=== PATIENT | female | born 1940 | race Caucasian/White ===

== ENCOUNTER → 2018-03-29 | Outpatient (CLI) | payer MEDICARE ==
[~2018-03-29] MED LIST: ASPIR-LOW81 MG PO; AZELASTINE137 MCG/0.; BENADRYL25 M1 PO; IOPAMIDOL 370 MG/ML 200 ML INFUS..BTL INJ ONE; METOPROLOL TART25 MG PO; RISPERIDONE0.5 MG PO; SODIUM CHLORIDE 0.9% 50ML 50 ML ONE; TAGAMET HB200 MG PO; TUMS200 MG PO
[2018-03-29 15:53] LABS: CREATININE, SERUM 0.91 mg/dL (0.57-1.11)
--- NOTE | 2018-03-29 16:37 | Diagnostic Imaging Report ---
PROCEDURE: CT scan of the chest WITH intravenous contrast, using standard protocol. TECHNIQUE: The chest was scanned utilizing a multidetector helical scanner from the lung apex through the level of the adrenal glands after the IV administration of 63 cc of Isovue 370. Coronal and sagittal multiplanar reformations were obtained. COMPARISON: Patients [facility], CT, CT CHEST W, 06/12/2017, 16:25. INDICATIONS: pe, right side chest pain FINDINGS: Exam limited by breathing motion artifact. Lines/tubes: None. Lungs and Airways: No filling defects in the main, right or left pulmonary arteries to the segmental level to suggest pulmonary embolism. A few scattered lucent areas interspersed with normal parenchyma are noted throughout both lungs is in mild mosaic distribution (for example series 3, image 30 in the upper lobes, and series 3, image 48 in the lower lobes. No consolidation. Stable 3 mm pulmonary nodule in the right upper lobe (series 3, image 43). Airways are clear, without endobronchial lesions. Pleura: No effusion, or pneumothorax. Heart and mediastinum: Thyroid is unremarkable. Heart size is normal. Trace pericardial fluid. Aorta is non-aneurysmal. Main pulmonary artery is enlarged, measuring 3.6 cm. Lymph nodes: No mediastina, hilar, or axillary adenopathy. Abdomen: Limited contrast-enhanced views of the upper abdomen show no abnormality within the visualized liver, spleen, pancreas or left kidney. Partially visualized 10.7 x 9.1 cm fluid density simple cyst in the superior pole of the right kidney, which is stable. The adrenal glands are normal. Bones: No acute bony abnormalities. Degenerative changes in the thoracic spine. Generalized osteopenia. Apparent deformity of the sternum (sagittal image 49). IMPRESSION: 1. no CT evidence of pulmonary embolism. 2. Findings in the lungs may reflect mosaic distribution, which can be seen with small airways or small vessel disease, and less likely, interstitial disease. No consolidation or effusion. 3. Stable 3 mm pulmonary nodule in the right upper lobe. No need for followup if this is a low risk patient, per Fleischner Society 2017 guidelines given its small size. 4. Enlarged main pulmonary artery suggesting pulmonary hypertension. 5. Stable large partially visualized simple cyst in the superior pole of the right kidney. 6. Apparent deformity of the sternum, which may be due to the breathing motion artifact, however, a chronic fracture deformity may be considered if there is prior history of trauma. Memo Toney M.D. Dictated by: Memo Toney M.D. on 03/29/2018 at 16:40 Electronically approved by: Memo Toney M.D. on 03/29/2018 at 16:40
== END ==
LOC: CT 15:08
PROVIDERS: ATTEND Internal Medicine
DX: R07.9 Chest pain, unspecified (principal)
CPT/HCPCS: 36415; 71260; 82565; 84520; Q9967

== ENCOUNTER 2018-11-30 04:24 | Observation (INO) | payer MEDICARE ==
[~2018-11-30] VITALS: Ht 157.5 cm; Wt 70.3 kg
[~2018-11-30 04:24] MED LIST changes: -IOPAMIDOL 370 MG/ML 200 ML INFUS..BTL INJ ONE; -SODIUM CHLORIDE 0.9% 50ML 50 ML ONE
--- OUTSIDE RECORDS SUMMARY | 2018-11-30 04:27 | XMS REPORT ---
Author Author [facility] Address Unknown Phone Unavailable Care Team Providers Care Fingerprint Expert Name Role Phone Camille MENESES Unavailable Unavailable Problems This patient has no known problems. Allergies, Adverse Reactions, Alerts This patient has no known allergies or adverse reactions. Medications This patient has no known medications. Results Test Description Test Time Test Comments Text Results Atomic Results Result Comments CT CHEST W [place] [address] Patient Name: ZEYAD QUICK MR #: [id number] : 1940 Age/Sex: 77/F Req #: [id number] Adm Physician: Ordered by: JOSÉ MIGUEL MENESES MD Report #: [id number] Location: CT Room/Bed: Procedure: [id number] CT/CT CHEST W Exam Date: 03/29/18 Exam Time: 1615 REPORT STATUS: Signed PROCEDURE: CT scan of the chest WITH intravenous contrast, using standard protocol. TECHNIQUE: The chest was scanned utilizing a multidetector helical scanner from the lung apex through the level of the adrenal glands after the IV administration of 63 cc of Isovue 370. Coronal and sagittal multiplanar reformations were obtained. COMPARISON: [facility], CT, CT CHEST W, 06/12/2017, 16:25. INDICATIONS: pe, right side chest pain FINDINGS: Exam limited by breathing motion artifact. Lines/tubes: None. Lungs and Airways: No filling defects in the main, right or left pulmonary arteries to the segmental level to suggest pulmonary embolism. A few scattered lucent areas interspersed with normal parenchyma are noted throughout both lungs is in mild mosaic distribution (for example series 3, image 30 in the upper lobes, and series 3, image 48 in the lower lobes. No consolidation. Stable 3 mm pulmonary nodule in the right upper lobe (series 3, image 43). Airways are clear, without endobronchial lesions. Pleura: No effusion, or pneumothorax. Heart and mediastinum: Thyroid is unremarkable. Heart size is normal. Trace pericardial fluid. Aorta is non-aneurysmal. Main pulmonary artery is enlarged, measuring 3.6 cm. Lymph nodes: No mediastina, hilar, or axillary adenopathy. Abdomen: Limited contrast-enhanced views of the upper abdomen show no abnormality within the visualized liver, spleen, pancreas or left kidney. Partially visualized 10.7 x 9.1 cm fluid density simple cyst in the superior pole of the right kidney, which is stable. The adrenal glands are normal. Bones: No acute bony abnormalities. Degenerative changes in the thoracic spine. Generalized osteopenia. Apparent deformity of the sternum (sagittal image 49). IMPRESSION: 1. no CT evidence of pulmonary embolism. 2. Findings in the lungs may reflect mosaic distribution, which can be seen with small airways or small vessel disease, and less likely, interstitial disease. No consolidation or effusion. 3. Stable 3 mm pulmonary nodule in the right upper lobe. No need for followup if this is a low risk patient, per Fleischner Society 2017 guidelines given its small size. 4. Enlarged main pulmonary artery suggesting pulmonary hypertension. 5. Stable large partially visualized simple cyst in the superior pole of the right kidney. 6. Apparent deformity of the sternum, which may be due to the breathing motion artifact, however, a chronic fracture deformity may be considered if there is prior history of trauma. Jamel Norris M.D. Dictated by: Jamel Norris M.D. on 03/29/2018 at 16:40 Electronically approved by: Jamel Norris M.D. on 03/29/2018 at 16:40 Dictated By: JAMEL NORRIS MD [id number] Transcribed By: JADE on 03/29/18 1640 COPY TO: JOSÉ MIGUEL MENESES MD
[2018-11-30 05:30] LABS: BASOPHILS % 0.7 % (0.0-1.0); EOSINOPHILS # (AUTO) 0.1 (0.0-0.4); EOSINOPHILS % 1.4 % (0.0-6.0); HEMATOCRIT 42.4 % (34.2-44.1); HEMOGLOBIN 13.9 g/dL (12.0-16.0); LYMPHOCYTES % 35.5 % (18.0-39.1); MEAN CORPUSCULAR HEMOGLOBIN 30.5 pg (28-32); MEAN CORPUSCULAR HGB CONC 32.8 g/dL (31-35); MEAN CORPUSCULAR VOLUME 93.2 fL (81-99); MONOCYTES # (AUTO) 0.8 (0.2-0.8); MONOCYTES % 13.6 % (4.4-11.3); NEUTROPHILS # (AUTO) 2.7 (2.1-6.9); NEUTROPHILS % 48.6 % (38.7-80.0); PLATELET COUNT 282 x10e3/uL (140-360); RED BLOOD COUNT 4.55 x10e6/uL (3.6-5.1)
[2018-11-30 05:41] LABS: INR 1.15; PROTHROMBIN TIME 15.7 seconds (11.9-14.5)
[2018-11-30 05:42] LABS: PARTIAL THROMBOPLASTIN TIME 31.4 seconds (23.8-35.5)
[2018-11-30] MEDS ORDERED: RISPERIDONE0.5 MG PO (05:47)
[2018-11-30] MEDS ORDERED: XARELTO10 MG PO (05:47)
[2018-11-30] MEDS ORDERED: AZELASTINE HCL6 ML (05:50)
[2018-11-30] MEDS ORDERED: LOSARTAN POTASS25 MG PO (05:50)
[2018-11-30] MEDS ORDERED: ASPIRIN81 MG PO (05:50)
[2018-11-30 05:51] LABS: ALBUMIN 3.8 g/dL (3.5-5.0); ALBUMIN/GLOBULIN RATIO 1.6 (0.8-2.0); ANION GAP 11.6 mmol/L (8-16); CREATININE, SERUM 1.17 mg/dL (0.57-1.11); POTASSIUM 3.6 mmol/L (3.5-5.1)
[2018-11-30 05:52] LABS: CREATINE KINASE MB 0.6 ng/mL (0-5.0)
--- NOTE | 2018-11-30 05:56 | NUR ---
PT ATTEMPTED TO COLLECT URINE SAMPLE, DROPPED CUP IN TOILET WHILE TRYING TO COLLECT, PT STATES SHE WILL TRY AGAIN SOON POSSIBLE.
--- NOTE | 2018-11-30 06:13 | Diagnostic Imaging Report ---
EXAMINATION: CHEST 2 VIEWS INDICATION: chest pain COMPARISON: Chest x-ray 06/11/2017, chest CT 03/29/2018 FINDINGS: PA and lateral views TUBES and LINES: None. LUNGS: Lungs are well inflated. There is no evidence of pneumonia or pulmonary edema. PLEURA: No pleural effusion or pneumothorax. HEART AND MEDIASTINUM: The cardiomediastinal silhouette is unremarkable. BONES AND SOFT TISSUES: No acute osseous lesion. Soft tissues are unremarkable. UPPER ABDOMEN: No free air under the diaphragm. IMPRESSION: No acute thoracic abnormality. Signed by: DR. Nathaniel Palm MD on 11/30/2018 6:09 AM
[2018-11-30] MEDS ORDERED: ONDANSETRON HCL INJ 2MG/ML 2ML 2 MG/ML VIAL IV PRN (06:45)
--- NOTE | 2018-11-30 07:09 | NUR ---
RECEIVED REPORT FROM JEFF WALLS FOR CONTINUATION OF CARE
--- NOTE | 2018-11-30 07:09 | NUR ---
REPORT TO TITI IBARRA
--- NOTE | 2018-11-30 07:15 | NUR ---
PT AMBULATED TO THE RESTROOM WITH ASSIST FROM FAMILY AND PROVIDED URINE SAMPLE
[2018-11-30 07:25] LABS: BILIRUBIN,URINE NEGATIVE (NEGATIVE); CLARITY,URINE SL CLOUDY (CLEAR); COLOR,URINE YELLOW (YELLOW); KETONES,URINE NEGATIVE (NEGATIVE); LEUKOCYTE ESTERASE ,URINE 1+ (NEGATIVE); NITRITE,URINE NEGATIVE (NEGATIVE); PROTEIN,URINE DIPSTICK NEGATIVE (NEGATIVE); URINE UROBILINOGEN 0.2 mg/dL (0.2 - 1)
[2018-11-30 07:34] LABS: BACTERIA,URINE RARE /HPF; EPITHELIAL CELLS,URINE RARE /LPF
--- NOTE | 2018-11-30 07:57 | History and Physical ---
CHIEF COMPLAINT: [id number] female comes with left-sided chest pain. HISTORY OF PRESENTING ILLNESS: This is Ms. Severino with a history of pulmonary embolism, hypertension, hyperlipidemia, was in usual state of health until about 3 days prior to admission, the patient had reached out her alarm clock and felt a chest pain on the left side, did not do much with it, but this morning the patient continued to have chest pain and worsening in nature, 6/10 to 8/10 in intensity, and the patient came in, was found to have bigeminy, and patient is admitted for abnormal EKG changes and also for chest pain. PAST MEDICAL HISTORY: History of reflux esophagitis, history of arrhythmias, history of pulmonary embolism. MEDICATIONS: She takes Xarelto for pulmonary embolism, hyperlipidemic agents. Patient medications include aspirin, losartan, risperidone, and Xarelto. Also takes Astelin nasal spray. ALLERGIES: TO SULFA ANTIBIOTICS. SOCIAL HISTORY: No ETOH, no IV drug abuse. Medical history as mentioned above. Additional medical history includes history of bipolar disease. REVIEW OF SYSTEMS: Negative for shortness of breath. Positive for chest pain. No nausea, vomiting, diarrhea. No constipation, no rectal bleeding. No hematochezia, no hematemesis. No palpitations either. No diplopia, no blurry vision. PHYSICAL EXAMINATION: GENERAL: Patient is alert and oriented x3. VITAL SIGNS: Temperature is 97.1, pulse of 92, respiration of 17, blood pressure is 151/88. HEENT: Normocephalic, atraumatic. Pupils are reactive to light and accommodation. CVS: S1 and S2. Regular rate and rhythm. ABDOMEN: Nontender, nondistended. EXTREMITIES: No clubbing, no cyanosis, no edema. LUNGS: Chest wall tenderness on the left side, maximum in the third and fourth intercostal areas. IMAGING STUDIES: Patient's chest x-ray was no acute thoracic abnormalities. LABORATORY VALUES: White count is 5.57, hemoglobin of 13.9, and hematocrit of 42.4. Chemistries: Creatinine 1.7, GFR of 45, BUN of 17, magnesium was 2.2. Coags were normal. EKG shows bigeminy of about 50 to 60s. ASSESSMENT: Possible sick sinus syndrome. PLAN: To consult cardiology. Dr. Girard has been consulted. Continue with all of home medications and CV medications for hypertension, hyperlipidemia, and also for bipolar disease. Further recommendations on clinical course. A possible consult with EP will also be done and will follow the patient along with cardiology. Job#: [id number]
[2018-11-30] MEDS ORDERED: LOSARTAN POTASSIUM 25 MG TAB PO SCH (09:00)
[2018-11-30] MEDS ORDERED: RIVAROXABAN 10 MG TABLET PO SCH ×2 (09:00→21:00)
[2018-11-30] MEDS ORDERED: ASPIRIN 81 MG CHEW TAB PO SCH (09:00)
[2018-11-30] MEDS ORDERED: RISPERIDONE 0.5 MG TAB PO SCH ×2 (09:00→21:00)
--- NOTE | 2018-11-30 11:00 | NUR ---
REPORT GIVEN TO CHAGO
--- NOTE | 2018-11-30 11:05 | NUR ---
RECEIVED REPORT FROM FRED FOR CONTINUITY OF CARE
--- NOTE | 2018-11-30 11:15 | NUR ---
ECHOVASCULAR AT BEDSIDE FOR DIAGNOSTICS
[2018-11-30 11:59] LABS: CREATINE KINASE 70 IU/L (29-168)
[2018-11-30] MEDS ORDERED: IBUPROFEN 400 MG TAB PO PRN (13:45)
[2018-11-30] MEDS ORDERED: IBUPROFEN 200 MG TAB PO PRN (13:45)
[2018-11-30 15:26] VITALS: BP 145/79
== END 2018-11-30 16:24 | disposition home or self-care (01) ==
LOC: ER 04:24 → ERHOLD 06:56
PROVIDERS: ADMIT Family Medicine; ATTEND Family Medicine
DX: R07.9 Chest pain, unspecified (principal); R94.31 Abnormal electrocardiogram [ECG] [EKG]; Z86.711 Personal history of pulmonary embolism; Z79.01 Long term (current) use of anticoagulants; I10 Essential (primary) hypertension; E78.5 Hyperlipidemia, unspecified; R00.8 Other abnormalities of heart beat; F31.9 Bipolar disorder, unspecified
CPT/HCPCS: 36415; 71046; 80053; 81001; 82550; 82553; 83735; 84484; 85025; 85610; 85730; 93005; 93306; 99283; G0378

== ENCOUNTER 2019-04-02 12:06 | Emergency (ER) | payer MEDICARE ==
[~2019-04-02] VITALS: Ht 157.5 cm; Wt 70.3 kg
[~2019-04-02 12:06] MED LIST changes: +ASPIRIN81 MG PO; +AZELASTINE HCL6 ML; +LOSARTAN POTASS25 MG PO; +XARELTO10 MG PO
--- NOTE | 2019-04-02 13:16 | Diagnostic Imaging Report ---
EXAMINATION: CHEST 2 VIEWS INDICATION: ^cough COMPARISON: Chest x-ray 11/30/2018. FINDINGS: PA and lateral views TUBES and LINES: None. LUNGS: Lungs are well inflated. Lungs are clear. There is no evidence of pneumonia or pulmonary edema. PLEURA: No pleural effusion or pneumothorax. HEART AND MEDIASTINUM: The cardiomediastinal silhouette is unremarkable. There are atherosclerotic calcifications within the aorta. BONES AND SOFT TISSUES: No acute osseous lesion. Soft tissues are unremarkable. UPPER ABDOMEN: No free air under the diaphragm. IMPRESSION: No acute thoracic abnormality. Signed by: Dr. Osbaldo Mcnulty M.D. on 04/02/2019 1:13 PM
[2019-04-02 13:44] VITALS: BP 128/80
== END 2019-04-02 13:47 | disposition home or self-care (01) ==
LOC: ER 12:06
DX: J20.8 Acute bronchitis due to other specified organisms (principal); Z88.0 Allergy status to penicillin; I10 Essential (primary) hypertension; Z86.718 Personal history of other venous thrombosis and embolism; Z86.711 Personal history of pulmonary embolism
CPT/HCPCS: 71046; 99283

== ENCOUNTER 2025-05-16 14:46 | Emergency (ER) | payer MEDICARE ==
[~2025-05-16] VITALS: Ht 162.6 cm; Wt 68.0 kg
[2025-05-16 15:08] VITALS: TEMP 97.9
[2025-05-16 15:23] LABS: BASOPHILS % 0.3 % (0.0-1.0); EOSINOPHILS % 0.2 % (0.0-6.0); LYMPHOCYTES % 11.9 % (18.0-39.1); MONOCYTES % 13.8 % (4.4-11.3); NEUTROPHILS % 73.4 % (38.7-80.0); RED CELL DISTRIBUTION WIDTH 13.2 % (11.7-14.4)
[2025-05-16 15:43] LABS: EST GLOMERULAR FILTRATION RATE 41.0 ML/MIN (>=60)
[2025-05-16] MEDS ORDERED: ENOXAPARIN SODIUM INJ 100 MG/ML SYR SC SCH (17:30)
[2025-05-16 18:00] VITALS: PULSE 83; RESP 14
[2025-05-16] MEDS ORDERED: ACETAMINOPHEN500 MG PO (19:11)
[2025-05-16] MEDS ORDERED: HYDROCODON-ACE1 EA12 PO (19:11)
[2025-05-16 19:47] VITALS: BP 149/72; PULSE 86; RESP 18; O2SAT 97
== END 2025-05-16 19:42 | disposition home or self-care (01) ==
LOC: ER 15:09
DX: S72.111A Displaced fracture of greater trochanter of right femur, initial encounter for closed fracture (principal); W01.0XXA Fall on same level from slipping, tripping and stumbling without subsequent striking against object, initial encounter; Y93.K1 Activity, walking an animal; I10 Essential (primary) hypertension; Z86.718 Personal history of other venous thrombosis and embolism; Z79.01 Long term (current) use of anticoagulants; Z87.440 Personal history of urinary (tract) infections; K21.9 Gastro-esophageal reflux disease without esophagitis; M54.9 Dorsalgia, unspecified
CPT/HCPCS: 36415; 70450; 80053; 85025; 85730; 99284

== ENCOUNTER 2025-06-22 17:12 | Observation (INO) | payer MEDICARE ==
[~2025-06-22] VITALS: Ht 162.6 cm; Wt 68.0 kg
[~2025-06-22 17:12] MED LIST changes: +ACETAMINOPHEN500 MG PO; +HYDROCODON-ACE1 EA12 PO
[2025-06-22 18:16] VITALS: PULSE 89; RESP 17; TEMP 97.5
[2025-06-22 18:50] LABS: BASOPHILS % 0.4 % (0.0-1.0); EOSINOPHILS % 1.8 % (0.0-6.0); LYMPHOCYTES % 22.4 % (18.0-39.1); MONOCYTES % 14.0 % (4.4-11.3); NEUTROPHILS % 61.3 % (38.7-80.0); RED CELL DISTRIBUTION WIDTH 12.6 % (11.7-14.4)
[2025-06-22 19:15] LABS: EST GLOMERULAR FILTRATION RATE 65.0 ML/MIN (>=60)
[2025-06-22 20:00] VITALS: BP 146/72; PULSE 75; RESP 18; TEMP 97.9; O2SAT 94
[2025-06-22 20:58] VITALS: PULSE 83; RESP 20; O2SAT 94
[2025-06-22] MEDS: ALBUTEROL/IPRATROPIUM 3 ML NEB NEB ONE (20:58)
[2025-06-22] MEDS: DEXAMETHASONE SOD PHOS 10 MG/1 ML VIAL IV ONE (20:59)
[2025-06-22 21:00] VITALS: BP 151/69; PULSE 83; RESP 18; TEMP 97.9; O2SAT 94
[2025-06-23] VITALS (9 sets, daily range): BP systolic 138–160; BP diastolic 65–73; PULSE 69–110; RESP 18–20; TEMP 97.7–98.3; O2SAT 93–98
[2025-06-23 06:26] LABS: BASOPHILS % 0.2 % (0.0-1.0); EOSINOPHILS % 0.0 % (0.0-6.0); LYMPHOCYTES % 18.5 % (18.0-39.1); MONOCYTES % 1.2 % (4.4-11.3); NEUTROPHILS % 79.9 % (38.7-80.0); RED CELL DISTRIBUTION WIDTH 12.4 % (11.7-14.4)
[2025-06-23 06:51] LABS: EST GLOMERULAR FILTRATION RATE 74.0 ML/MIN (>=60)
[2025-06-23] MEDS ORDERED: MONTELUKAST SOD10 MG PO (07:17)
[2025-06-23] MEDS ORDERED: AMLODIPINE BESY10 MG PO (07:17)
== END 2025-06-23 17:00 | disposition home or self-care (01) ==
LOC: ER 18:08 → ERHOLD 19:59 → MED/SURG3 21:00
PROVIDERS: ADMIT Family Medicine; ATTEND Family Medicine
DX: J45.909 Unspecified asthma, uncomplicated (principal); R09.02 Hypoxemia; E87.1 Hypo-osmolality and hyponatremia; R54 Age-related physical debility; I10 Essential (primary) hypertension; Z86.718 Personal history of other venous thrombosis and embolism; K21.9 Gastro-esophageal reflux disease without esophagitis; M54.9 Dorsalgia, unspecified
CPT/HCPCS: 36415; 71045; 80048; 80053; 83880; 84484; 85025; 93005; 94640; 94799; 99284; G0378; J1100